=== PATIENT | female | born 1990 | race Caucasian/White ===

== ENCOUNTER → 2018-03-08 18:14 | Outpatient (CLI) | payer OTHER, SELFPAY ==
[2018-03-08 19:21] LABS: Estradiol 29.4 pg/mL; Follicle Stimulating Hormone 8.3 mIU/mL; Thyroid Stim Hormone (TSH) 2.02 uIU/mL (0.358-3.74)
--- OUTSIDE RECORDS SUMMARY | 2018-05-04 09:51 | XMS RPT_ITS ---
:1990 Author Organization [facility] Care Team Providers Name Role Phone Julianne De Luna Attending Unavailable Helen Younger Attending Unavailable Mago Sawyer Attending Unavailable [facility], CLINIC Primary Care Unavailable Berlin Emerson Admitting Unavailable Berlin Emerson Attending Unavailable QUOC URIBE Attending Unavailable QUOC URIBE Referring Unavailable NO, PHYSICIAN Primary Care Unavailable PROBLEMS PROBLEMS DATE TYPE CONDITION / CODE ATTENDING STATUS SOURCE 03/08/2018 Unknown N97.0 - Female Helen Younger Active [facility] associated with [facility] anovulation / Repository N97.0(ICD-10) 02/11/2018 Unknown N94.6 - Calixto, Active Kimmy Dysmenorrhea, Julianne Community unspecified / Hospital N94.6(ICD-10) Repository 09/15/2017 Admitting Sprain of carpal URIBE, Active [facility] Two diagnosis joint of left QUOC Repository wrist, initial SHARON encounter / S63.512A(ICD-10) PROCEDURES PROCEDURES No Procedure Records FoundRESULTS RESULTS THYROID STIM HORMONE Collected: 03/08/2018 Status: F Source: [place] (TSH) 6:20 PM [facility] REPOSITORY TYPE CODE TESTS RESULT OUT OF RANGE REFERENCE UNITS LAB L501.9520 0.358-3.74 uIU/mL Normal TSH 2.02 Performed By: #### L501.9520, L3100.5125, L3100.5420, L3300.1750 #### [facility] [address] [place], [address] FOLLICLE STIMULATING Collected: 03/08/2018 Status: F Source: KIMMY HORMONE 6:20 PM [facility] REPOSITORY TYPE CODE TESTS RESULT OUT OF RANGE REFERENCE UNITS LAB L3100.5125 mIU/mL Normal FSH 8.3 Result Comment: NORMAL REFERENCE RANGES FEMALE FOLLICULAR 2.3 - 12.6 mIU/mL MID-CYCLE PEAK 5.2 - 17.5 mIU/mL LUTEAL 1.7 - 12.9 mIU/mL POST-MENOPAUSAL ON MHT 5.9 - 72.8 mIU/mL NOT ON MHT 12.7 - 132.2 mlU/mL MALE 0.7 - 10.8 mIU/mL NEW TEST METHOD AND REFERENCE RANGES AUGUST 31, 2011 Performed By: #### L501.9520, L3100.5125, L3100.5420, L3300.1750 #### [facility] [address] [facility] [facility] [place], [address] PROLACTIN Collected: 03/08/2018 Status: F Source: [place] 6:20 PM [facility] REPOSITORY TYPE CODE TESTS RESULT OUT OF RANGE REFERENCE UNITS LAB L3100.5420 ng/mL Normal PROLACTIN 15.0 Result Comment: NORMAL REFERENCE RANGES FEMALE NON- 2.2 - 30.3 ng/mL 8.1 - 347.6 ng/mL POST-MENOPAUSAL 0.7 - 31.5 ng/mL MALE 2.5 - 17.4 ng/mL NEW TEST METHOD AND REFERENCE RANGES AUGUST 31, 2011 Performed By: #### L501.9520, L3100.5125, L3100.5420, L3300.1750 #### [facility] [address] [place], [address] ESTRADIOL Collected: 03/08/2018 Status: F Source: [place] 6:20 PM [facility] REPOSITORY TYPE CODE TESTS RESULT OUT OF RANGE REFERENCE UNITS LAB L3300.1750 pg/mL Normal ESTRADIOL 29.4 Result Comment: NORMAL REFERENCE RANGES FEMALE FOLLICULAR 21.4 - 164.8 pg/mL MID-CYCLE PEAK 49.9 - 367.2 pg/mL LUTEAL 40.2 - 259.0 pg/mL POST-MENOPAUSAL ON MHT <11.0 - 462.1 pg/mL NOT ON MHT <11.0 - 58.3 pg/mL MALE <11.0 - 52.5 pg/mL NOTE: [facility] HAS CONFIRMED THE DRUG FULVETRANT (FASLODEX) MAY CAUSE FALSELY ELEVATED ESTRADIOL RESULTS WHEN USING THIS TEST METHOD. IF PATIENT IS TAKING FULVESTRANT AN ALTERNATIVE METHOD SHOULD BE USED TO DETERMINE ESTRADIOL CONCENTRATION. Performed By: #### L501.9520, L3100.5125, L3100.5420, L3300.1750 #### [facility] [address] 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 [place] [address] OFFICE VISIT Date of Service: 02/11/18 MR#: [id number] Acct: [id number] Name: SHANON TURPIN Rep #: [id number] : 1990 Provider: Julianne De Luna MD Age/Sex: 27/F Location: [facility] Status: Signed Intake Vital Signs02/11/18 Height 5 ft 6 in 02/11/18 Weight: 184 lb 02/11/18 Body Mass Index (BMI) 29.7 Intake Visit Reasons: DISCUSS INFERTILITY Chief Complaint: NEW, infertility consult Laboratory Engineer Required: No Is patient in pain?: No Allergies No Known Allergies Allergy (Unverified 02/11/18 13:24) Medications NK 02/11/18 [History Confirmed 02/11/18] Is last menstrual period known: Yes Last Menstral Period: 02/03/18 Post menopausal: No Patient : No : No PFSH Family History Mother Diabetes Grandmother Breast cancer Unknown Cancer ovarian Unknown Heart disease Social History Smoking Status: Former smoker alcohol intake: never substance use type: does not use caffeine: Yes what type of physical activity do you participate in: walking seatbelt use: always do you feel safe at home: Yes additional social history: [employer] 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 she was TTC for the last two years. both her and have quit smoking and deny any std history. no testicular trauma history. no family history of endometriosis. she has had positive OPKs. Female Reproductive History Last Menstral Period: 02/03/18 Cycle Length: 21-35 Bleeding Duration: 4 associated symptoms: dysmenorrhea Questions: Metorrhagia: No, Sexually active: Yes, Dyspareunia: No, PCB: No ROS Const Constitutional: Denies poor appetite, headache(s), fever(s), increased appetite, weight gain, weight loss or fatigue ENT ENT: Denies dry mouth Cardio Card: Denies chest pain Resp Resp: Denies dyspnea or cough GI GI: Reports as per HPI; denies vomiting, nausea, abdominal pain or constipation : Reports as per HPI; denies difficulty urinating, blood in urine, pelvic pain, urinary frequency, urinary incontinence, urinary hesitancy, urinary urgency, vaginal discharge, vaginal dryness, vaginal odor, vaginal itching, other, painful urination or nipple discharge Musc Musc: Denies muscle weakness, joint pain or back pain Skin Skin/Breast: Denies hair loss, change in hair, dry skin, breast pain, breast skin changes, breast lump or nipple discharge Neuro Neuro: Reports system reviewed and no additional complaints, except as docu Psych Psych: Reports system reviewed and no additional complaints, except as docu Endo Endo: Denies cold intolerance, increased thirst, excessive sweating or heat intolerance Bob/Lymph Hematologic/Lymphatic: Denies easy bleeding, Denies easy bruising, Denies enlarged lymph nodes Exam Const General: cooperative, healthy appearing, comfortable, no acute distress, well developed Nutritional Appearance: average body habitus Orientation: alert [facility] Head: normal to inspection, normocephalic Ears: hearing grossly normal bilaterally, external ears normal Nose: external nose normal, nares normal Face and sinus: normal facial exam Neck Neck: normal visual inspection, trachea midline, no lymphadenopathy Thyroid: thyroid normal Chest Chest palpation AND inspection: normal inspection of the chest Resp Effort AND Inspection: normal respiratory effort Cardio Rate: regular rate GI Inspection: normal to inspection, non-distended Palpation: soft, no hepatosplenomegaly Musc Other: gross motor intact no deficits, full bilateral strength Skin General: no rashes or lesions noted Neuro Motor: muscle tone normal throughout Extrem General: normal to inspection, no pedal edema Psych Appearance: grossly normal Mental Status: mental status grossly normal Affect: normal affect Speech and Movement: speech and movement normal Assessment AND Plan Problems 1. Infertility 2. Dysmenorrhea N94.6 Plan discussed with patient recommend full workup- handout given. Coding Level of Care Code Off vis,new,level 4 Diagnoses Infertility Dysmenorrhea N94.6 02/11/18 1413 <Electronically signed by Julianne De Luna MD> Date Julianne De Luna MD Cosigner Signature: Date (if applicable) CC: MR WRIST LEFT WITHOUT Observed: 09/15/2017 Status: F Source: Fifteen Reasons 11:57 AM TWO REPOSITORY Order Comment: [facility] Reason for exam?:Lt wrist pain and decreased rom s/p moving piece of granite at work. Eval for cause pt. Is casted so wrist coil unable to be used. Injury/Trauma or Illness?:Injury/Trauma How long have you had these symptoms (acute/chronic)?:Acute Type of Exam?:Initial Mechanism of injury?:n/a EXAMINATION: MRI OF THE LEFT WRIST WITHOUT CONTRAST 09/15/2017 TECHNIQUE: Multiplanar multisequence MRI of the left wrist was performed without the administration of intravenous contrast. COMPARISON: None. HISTORY: ORDERING SYSTEM PROVIDED HISTORY: Sprain of carpal joint of left wrist, initial encounter; TECHNOLOGIST PROVIDED HISTORY: Reason for Exam: Lt wrist pain and decreased rom s/p moving piece of granite at work. Eval for cause pt. Is casted so wrist coil unable to be used. Injury/Trauma Acuity: Acute Type of Encounter: Initial ORDERING SYSTEM PROVIDED DIAGNOSIS CODES: S63.512A Sprain of carpal joint of left wrist, initial encounter FINDINGS: LIGAMENTS: Slight thickening and mildly increased T2 signal change to volar aspect of scapholunate ligament without focal discontinuity identified. Findings are compatible with low-grade sprain. Lunotriquetral ligament appears intact and unremarkable. To the extent that they can be evaluated, the intrinsic ligaments appear to be intact. TFCC: TFCC appears intact and unremarkable. TENDONS: Visualized tendons appear intact and unremarkable. CARPAL TUNNEL: No focal abnormalities are seen in the region of the carpal tunnel. Visualized median nerve appears unremarkable. JOINT SPACES: No significant degenerative changes are seen. Small joint effusion noted at articulation of pisiform with triquetrum. BONE MARROW: Mild degree of bone marrow edema to the pisiform predominantly to the proximal aspect. No fracture lines are identified. No suspicious focal bony lesions. Likely a benign intraosseous ganglion to the lunate. Bone marrow signal intensities otherwise appear to be maintained. SOFT TISSUE: No soft tissue masses. Multiloculated cystic focus to the ventral radial wrist at the level of the radiocarpal joint likely reflecting synovial or ganglion cyst measuring 0.8 x 0.9 x 0.5 cm. Mild edema in the soft tissues adjacent to the pisiform. IMPRESSION: Mild bone marrow edema to the pisiform without fracture line identified. This could be reactive in nature or reflect bone marrow contusion. Mild degree of nonspecific adjacent soft tissue edema. There is also a small joint effusion at the articulation of the pisiform with the triquetrum. Likely synovial versus ganglion cyst to the ventral radial wrist at the level of the radiocarpal joint. Low-grade sprain ventral aspect of scapholunate ligament. ACN/lab Workstation ID: [id number] Dictated by: FRANCOIS GIRON on WedSep 15, 2017 1:22:46 PM EDT Transcribed by: VEE DOWELL on WedSep 15, 2017 1:30:21 PM EDT Finalized by: FRANCOIS GIRON on WedSep 15, 2017 1:30:21 PM EDT XR WRIST 3+ VIEWS Observed: 09/03/2017 Status: F Source: MAGGIE LEFT 11:43 PM [facility] REPOSITORY Exam Date/Time: 09/04/2017 00:00 EDT Reason for Exam: Pain, Non Traumatic Report LEFT WRIST, 4 VIEWS ON 5 RADIOGRAPHS. CLINICAL HISTORY: Medial wrist pain, nontraumatic. COMPARISON: None. FINDINGS: No acute fracture or dislocation. Normal carpal bone alignment. Negative ulnar variance is noted. No abnormal soft tissue swelling. Normal bone mineralization. IMPRESSION: No acute osseous abnormality. Ulnar negative variance is noted. FINAL REPORT Dictated: 09/04/2017 0:47 am Vasquez Keys MD Signed (Electronic Signature): 09/04/2017 0:47 am Signed by: Vasquez Keys MD Technologist: [facility] ALLERGIES ALLERGIES DATE TYPE / CODE NAME / CODE REACTION SEVERITY SOURCE 02/11/2018 Drug No Known Unknown [facility] Allergy/416 Allergies/Z81403 Hospital 450723(SNOM 0388(RXNORM) Repository ED CT) Drug/367609 No Known Sikhism 003(SNOMED Allergies [facility] CT) System Repository ENCOUNTERS ENCOUNTERS ADMIT/DISCHARGE ACCOUNT NUMBER ADMITTING ENCOUNTER LOCATION SOURCE CLASS 03/08/2018 [id number] Ambulatory [facility] ding:[facility]SPEC Repository 02/11/2018/02/12/20 [id number] Ambulatory BMSBuilding: Kimmy 18 BMS.[facility] Repository 11/01/2017 [id number] Ambulatory BMSBuilding: [place] BMS.[facility] Repository 09/15/2017/09/16/19 [id number] Ambulatory Building:[place] [address] [address] Repository 09/03/2017/09/05/19 [id number] [facility] [place] [address] [facility] ding:[facility] EDRoom: WR Repository 09/03/2017 [id number] Ambulatory [address] [place] [address] Repository PAYERS PAYERS ENCOUNTER GUARANTOR PAYER SUBSCRIBER SOURCE 03/08/2018 Honorio Primary Honorio BrownDOB: Kimmy [id number] BROWN Insurance:UNITED [id number] [facility] [address]Tif: (419) Number: Repository [phone] () [id number] Date:6295-18-31KS [address] [place] [address]PB: 03/08/2018 Secondary NOT GIVENUNK Kimmy Insurance:SELF PAY [facility] Number: Effective Repository Date:2018-03-08 02/11/2018 Honorio Primary Honorio BrownDOB: [place] [id number] BROWN Insurance:GRIFFIN [id number] [facility] [address]Lsf: (419) Number: Repository [phone] () [id number] Date:8162-31-91YS [address] [address], [place] [address]TB: 02/11/2018 Secondary NOT GIVENUNK Kimmy Insurance:SELF PAY [facility] Number: Effective Repository Date:2018-02-11 11/01/2017 Honorio Primary Honorio BrownDOB: [place] [id number] BROWN Insurance:GRIFFIN [id number] [address]Ope: 419) Number: Repository [phone] () [id number] Date:0049-76-86JV [address] [place] [address]UA: 11/01/2017 Secondary NOT GIVENUNK Kimmy Insurance:SELF PAY [facility] Number: Effective Repository Date:2017-11-01 09/15/2017 [id number] Primary CAYSE J [facility] Two -: Insurance:WORKER'S BROWNDOB: Repository [facility] Number: [id number] [facility] [id number] [facility], Date:[place], [place] [address]Lxu: 10[address] [address]Nvh: [id number]: [phone] (HP) 09/03/2017 CAYSE J Primary CAYSE J Sikhism BROWNDOB: Insurance:BWCPolicy [facility] [id number] Number: Effective [id number] [facility] Date:2017-09-03 [place], [place] 4884[place] [address]Iqv: Name:Worker's [phone]: Compensation (HP) (HP) (WP) 09/03/2017 CAYSE Primary CAYSE SYLACAUGADOB: [facility] Insurance:AnthemPolicy [id number] [facility] Number: 5 DYANA TURPIN [id number] ARELI HUNT [place] Date:Plan Name:[facility] [id number]: [phone]: (FU) ()
--- OUTSIDE RECORDS SUMMARY | 2018-05-04 09:51 | XMS RPT_ITS | Summary of Care ---
:1990 Author Organization [facility] Address [address] [place] [address] Care Team Providers Name Role Phone No, Physician Primary Care Provider Unavailable Reason for Referral MRI/CAT/PET Scan (Routine) Status Reason Specialty Diagnoses / Referred By Contact Referred To Procedures Contact Closed Radiology Diagnoses Sprain of carpal joint of left wrist, initial encounter Thanh Hall Procedures MR Wrist Left Without Contrast MD Kit [address] [place] [id number] MRI/CAT/PET Scan (Routine) Status Reason Specialty Diagnoses / Referred By Contact Referred To Procedures Contact Closed Radiology Diagnoses Sprain of carpal joint of left wrist, initial encounter Ash Hallophjin Procedures MR Wrist Left Without Contrast MD Kit [address] [place] [address] Reason for Visit MRI/CAT/PET Scan (Routine) Status Reason Specialty Diagnoses / Referred By Contact Referred To Procedures Contact Closed Radiology Diagnoses Sprain of carpal joint of left wrist, initial encounter Ash Hallopher Procedures MR Wrist Left Without Contrast MD Kit [address] [place] [address] Encounter Details Date Type Department Care Team Description 09/15/2017 [facility] Hall, Sprain of carpal Encounter [place] [facility] Christopher joint of left [address]ton MD Kit wrist, [place], [place] [address] encounter [address] [address] [place] [id number] [phone] Active Problems Problem Noted Date Pelvic and perineal pain 01/27/2017 Encounter for screening for malignant neoplasm of cervix 01/27/2017 Social History Tobacco Use Types Packs/Day Years Used Date Never Assessed Sex Assigned at Date Recorded Not on file as of this encounter Last Filed Vital Signs Vital Sign Reading Time Taken Blood Pressure - - Pulse - - Temperature - - Respiratory Rate - - Oxygen Saturation - - Inhaled Oxygen Concentration - - Weight 81.6 kg (180 lb) 09/15/2017 12:06 PM EDT Height 167.6 cm (5' 6) 09/15/2017 12:06 PM EDT Body Mass Index 29.05 09/15/2017 12:06 PM EDT in this encounter Plan of Treatment Health Maintenance Due Date Last Done Comments TETANUS EVERY 10 YR 1990 SEQUENTIAL INFLUENZA VACCINE (Season Ended) 2017 PAP SMEAR 10/07/2019 10/06/2016 as of this encounter Results MR Wrist Left Without Contrast (09/15/2017 12:41 PM) Specimen Performing Laboratory [facility] Impressions Mild bone marrow edema to the pisiform without fracture line identified.?This could be reactive in nature or reflect bone marrow contusion.?Mild degree of nonspecific adjacent soft tissue edema.?There is also a small joint effusion at the articulation of the pisiform with the triquetrum. Likely synovial versus ganglion cyst to the ventral radial wrist at the level of the radiocarpal joint. Low-grade sprain ventral aspect of scapholunate ligament. ACN/lab Workstation ID:? [id number] Narrative EXAMINATION: MRI OF THE LEFT WRIST WITHOUT [...] aspect of scapholunate ligament without focal discontinuity identified.?Findings are compatible with low-grade sprain.?Lunotriquetral ligament appears intact and unremarkable.?To the extent that they can be evaluated, the intrinsic ligaments appear to be intact. TFCC: TFCC appears intact and unremarkable. TENDONS: Visualized tendons appear intact and unremarkable. CARPAL TUNNEL: No focal abnormalities are seen in the region of the carpal tunnel.?Visualized median nerve appears unremarkable. JOINT SPACES: No significant degenerative changes are seen.?Small joint effusion noted at articulation of pisiform with triquetrum. BONE MARROW: Mild degree of bone marrow edema to the pisiform predominantly to the proximal aspect.?No fracture lines are identified.?No suspicious focal bony lesions.?Likely a benign intraosseous ganglion to the lunate.?Bone marrow signal intensities otherwise appear to be maintained. SOFT TISSUE: No soft tissue masses.?Multiloculated cystic focus to the ventral radial wrist at the level of the radiocarpal joint likely reflecting synovial or ganglion cyst measuring 0.8 x 0.9 x 0.5 cm.?Mild edema in the soft tissues adjacent to the pisiform. Procedure Note Interface, Rad In Cintricq - 09/15/2017 1:32 PM EDT EXAMINATION: MRI OF THE LEFT WRIST WITHOUT [...] of scapholunate ligament. ACN/lab Workstation ID: [id number] in this encounter Visit Diagnoses Diagnosis Sprain of carpal joint of left wrist, initial encounter
== END ==
PROVIDERS: Visit Provider Nurse Practitioner Women's Health
DX: N97.0 Female infertility associated with anovulation (principal)
CPT/HCPCS: 36415; 82670; 83001; 84146; 84443